=== PATIENT | female | born 1960 | race Caucasian/White ===

== ENCOUNTER 2021-02-16 09:56 | Emergency (ER) | payer MEDICARE ==
[~2021-02-16] VITALS: Ht 170.2 cm; Wt 130.0 kg
[2021-02-16 10:05] VITALS: BP 169/93
[2021-02-16] MEDS ORDERED: CLIN300C9 PO (10:25)
[2021-02-16] MEDS ORDERED: MUPI22OI2 TP (10:25)
--- NOTE | 2021-02-16 10:26 | PHYS DOC ---
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 Associate with subjective fevers and chills, though afebrile upon arrival. No other associated symptoms. She has some leftover doxycycline which she took with no efficacy. Review of Systems: Review of Systems: Gen: Reports objective fever. CV: No CP, palpitations. Resp. No SOB, cough. GI: No abd pain, N/V. Neuro: No HWANG, dizziness, weakness. Skin: Reports skin lesion. Remainder of systems reviewed and negative unless otherwise specified. Physical Exam: PE: Gen: NAD. Well nourished. Head: NC/AT. Eyes: No scleral icterus. No conjunctival injection. ENT: MMM. Posterior OP clear. Neck: Supple. CV: RRR. Peripheral pulses intact. Resp: CTAB. Chest: Far left lateral chest wall superficial ulceration with mild surrounding cellulitic changes. Abd: Soft. NT. ND. MSK: No peripheral cyanosis. No edema. Neuro: Awake and alert. Skin. Warm. Dry. Psych: Appropriate mood & affect. Current Patient Data: Vital Signs: Vital Signs Date Time Temp Pulse Resp B/P (MAP) Pulse Ox O2 Delivery O2 Flow Rate FiO2 02/16/ 10:05 98.0 82 18 169/93 (118) 95 EKG: EKG: [] Radiology/Procedures: Radiology/Procedures: [] Heart Score: C/O Chest Pain: N/A Risk Factors: Risk Factors: DM, Current or recent (<one month) smoker, HTN, HLP, family history of CAD, obesity. Risk Scores: Score 0 - 3: 2.5% MACE over next 6 weeks - Discharge Home Score 4 - 6: 20.3% MACE over next 6 weeks - Admit for Clinical Observation Score 7 - 10: 72.7% MACE over next 6 weeks - Early Invasive Strategies Course & Med Decision Making: Course & Med Decision Making Pertinent Labs and Imaging studies reviewed. (See chart for details) In summary, 60-year-old female who presents with a 1 week history of a superficial ulceration of the left lateral chest wall with mild surrounding cellulitic changes. No fluctuance noted. No breast involvement. No findings suggestive of underlying abscess. Remains well-appearing and nontoxic. We discharged with clindamycin and topical Bactroban. Zofran as needed for nausea prophylaxis. Outpatient follow-up. Return precautions given. Gabriel Disclaimer: Gabriel Disclaimer: This electronic medical record was generated, in whole or in part, using a voice recognition dictation system. Departure Departure: Impression: Primary Impression: Cellulitis Disposition: 01 DC HOME SELF CARE/HOMELESS Condition: STABLE Referrals: PCP,NO (PCP) Patient Instructions: Cellulitis, [id number] Scripts Mupirocin (MUPIROCIN) 22 Gm Oint...g. 1 JIMMY TP TID for cellulitis, #22 GM Prov: BRAYDEN TURNER DO 02/16/21 Clindamycin Hcl (CLINDAMYCIN HCL) 300 Mg Capsule 1 CAP PO TID for cellulitis, #21 CAP Prov: BRAYDEN TURNER DO 02/16/21 BRAYDEN TURNER DO Feb 16, 2021 10:26
[2021-02-16] MEDS ORDERED: ONDA4TAB12 PO (10:27)
[2021-02-16] MEDS: CLINDAMYCIN HCL 150 MG CAPSULE PO ONE (10:37)
== END 2021-02-16 10:40 | disposition home or self-care (01) ==
LOC: ER 09:56
DX: L03.313 Cellulitis of chest wall (principal); R50.9 Fever, unspecified; M19.90 Unspecified osteoarthritis, unspecified site; I10 Essential (primary) hypertension; G89.29 Other chronic pain; Z86.14 Personal history of Methicillin resistant Staphylococcus aureus infection
CPT/HCPCS: 99283